=== PATIENT | female | born 1945 | race Caucasian/White ===

== ENCOUNTER 2023-07-12 10:19 | Emergency (ER) | payer OTHER ==
[~2023-07-12] VITALS: Ht 165.1 cm; Wt 83.9 kg
[2023-07-12 10:38] VITALS: BP_SYST 158; PULSE 109; RESP 20; TEMP 97.6; O2SAT 99
[2023-07-12 11:11] LABS: COVID19 ANTIGEN SOFIA FIA NEGATIVE (NEGATIVE)
[2023-07-12 11:12] LABS: INFLUENZA TYPE A Negative (NEGATIVE); INFLUENZA TYPE B NEGATIVE (NEGATIVE)
[2023-07-12] MEDS ORDERED: AUG875 PO (12:01)
[2023-07-12 12:10] VITALS: BP_SYST 158; PULSE 109; RESP 20; TEMP 97.6; O2SAT 99
== END 2023-07-12 12:11 | disposition home or self-care (01) ==
LOC: SED 10:19
DX: J20.9 Acute bronchitis, unspecified (principal); I10 Essential (primary) hypertension; Z79.899 Other long term (current) drug therapy; Z20.822 Contact with and (suspected) exposure to COVID-19
CPT/HCPCS: 36415; 71045; 99284